=== PATIENT | female | born 2000 | race African-American/Black ===

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

== ENCOUNTER 2022-04-06 15:44 | Emergency (ER) | payer BC ==
[2022-04-06 15:58] VITALS: BP 101/55; PULSE 71; RESP 18; TEMP 98.5; BMI 29.2
[2022-04-06] MEDS ORDERED: diazePAM 5 MG TABLET PO ONE (17:10)
[2022-04-06] MEDS ORDERED: KETOROLAC TROMETHAMINE 30 MG/1 ML VIAL IM ONE (17:10)
[2022-04-06] MEDS ORDERED: KETOROLAC TROMETHAMINE 30 MG/1 ML VIAL ONE (17:13)
[2022-04-06] MEDS ORDERED: diazePAM 5 MG TABLET ONE (17:13)
== END 2022-04-06 18:37 | disposition home or self-care (01) ==
LOC: JERFT 15:44
PROC: 3E023GC Introduction of Other Therapeutic Substance into Muscle, Percutaneous Approach (ICD-10-PCS; principal; 2022-04-06)
DX: S39.012A Strain of muscle, fascia and tendon of lower back, initial encounter (principal); M54.12 Radiculopathy, cervical region; V49.50XA Passenger injured in collision with unspecified motor vehicles in traffic accident, initial encounter
CPT/HCPCS: 72040-TC; 99284-25

== ENCOUNTER 2022-06-12 10:03 | Emergency (ER) | payer BC ==
[2022-06-12 10:18] VITALS: BP 128/82; PULSE 66; RESP 18; TEMP 97.5; BMI 28.3
[2022-06-12] MEDS ORDERED: ONDANSETRON 4 MG/2 ML VIAL IVPUSH ONE (10:30)
[2022-06-12] MEDS ORDERED: SODIUM CHLORIDE 0.9% 500 ML INFUS.BAG IV ONE (10:30)
[2022-06-12] MEDS ORDERED: ONDANSETRON 4 MG/2 ML VIAL ONE (10:46)
[2022-06-12 11:34] LABS: BASO % 0.4 % (0-2.0); EOS % 0.1 % (0-4.5); HEMATOCRIT 41.4 % (32.4-45.2); HEMOGLOBIN 13.9 GM/dL (10.7-15.3); LYMPH % 6.6 % (8-40); MCH 28.2 pg (25.7-33.7); MCHC 33.4 g/dl (32.0-36.0); MEAN CELL VOLUME 84.4 fl (80-96); MEAN PLT VOLUME 7.6 fl (7.5-11.1); MONO % 9.4 % (3.8-10.2); NEUT % 83.5 % (42.8-82.8); PLATELET COUNT 350 10^3/uL (134-434); RBC 4.91 M/mm3 (3.60-5.2); RDW 12.3 % (11.6-15.6); WHITE BLOOD COUNT 12.1 K/mm3 (4.0-10.0)
[2022-06-12 11:37] LABS: EPI CELLS >36 /uL (0-25.1); HYALINE CASTS 2 /uL (0-3.1); URINE APPEARANCE CLEAR; URINE BACTERIA 11 /uL (0-1359); URINE BILIRUBIN NEGATIVE (NEGATIVE); URINE COLOR YELLOW; URINE GLUCOSE (UA) NEGATIVE (NEGATIVE); URINE KETONE NEGATIVE (NEGATIVE); URINE LEUK ESTERASE TRACE (NEGATIVE); URINE NITRITE NEGATIVE (NEGATIVE); URINE PROTEIN NEGATIVE (NEGATIVE); URINE RBC 19 /uL (0-23.9); URINE UROBILINOGEN 0.2 mg/dL (0.2-1.0); URINE WBC 33 /uL (0-25.8)
[2022-06-12 11:52] LABS: HCG,QUALITATIVE URINE Negative
[2022-06-12 12:02] LABS: ALBUMIN 3.5 g/dl (3.4-5.0)
[2022-06-12 12:03] LABS: BLOOD UREA NITROGEN 13.8 mg/dL (7-18)
[2022-06-12 12:05] LABS: CREATININE 0.8 mg/dL (0.55-1.3)
[2022-06-12 12:08] LABS: BILIRUBIN,TOTAL 0.4 mg/dL (0.2-1); TOT PROT 7.1 g/dl (6.4-8.2)
== END 2022-06-12 12:31 | disposition home or self-care (01) ==
LOC: JER 10:03 → JERFT 10:03
PROC: 3E033GC Introduction of Other Therapeutic Substance into Peripheral Vein, Percutaneous Approach (ICD-10-PCS; principal; 2022-06-12)
DX: A09 Infectious gastroenteritis and colitis, unspecified (principal)
CPT/HCPCS: 36415; 80053; 81003; 84703; 85025; 87086; 99284-25

== ENCOUNTER 2022-09-13 22:35 | Emergency (ER) | payer BC ==
[2022-09-13 22:48] VITALS: BP 108/70; PULSE 75; RESP 18; TEMP 98.3; BMI 25.7
[2022-09-13] MEDS ORDERED: ONDANSETRON *ODT* 4 MG TABLET SL ONE (23:33)
[2022-09-13] MEDS ORDERED: SODIUM CHLORIDE 0.9% 500 ML INFUS.BAG IV ONE (23:34)
[2022-09-13] MEDS ORDERED: ONDANSETRON 4 MG/2 ML VIAL IVPUSH ONE (23:36)
[2022-09-13] MEDS ORDERED: ONDANSETRON 4 MG/2 ML VIAL ONE (23:51)
[2022-09-14 00:18] LABS: BASO % 0.4 % (0-2.0); EOS % 0.8 % (0-4.5); HEMATOCRIT 42.1 % (32.4-45.2); HEMOGLOBIN 14.2 GM/dL (10.7-15.3); LYMPH % 19.7 % (8-40); MCH 28.8 pg (25.7-33.7); MCHC 33.8 g/dl (32.0-36.0); MEAN CELL VOLUME 85.1 fl (80-96); MEAN PLT VOLUME 6.8 fl (7.5-11.1); MONO % 8.3 % (3.8-10.2); NEUT % 70.8 % (42.8-82.8); PLATELET COUNT 319 10^3/uL (134-434); RBC 4.94 M/mm3 (3.60-5.2); RDW 13.2 % (11.6-15.6); WHITE BLOOD COUNT 11.1 K/mm3 (4.0-10.0)
[2022-09-14 00:19] LABS: URINE APPEARANCE CLEAR; URINE BILIRUBIN NEGATIVE (NEGATIVE); URINE COLOR YELLOW; URINE GLUCOSE (UA) NEGATIVE (NEGATIVE); URINE KETONE NEGATIVE (NEGATIVE); URINE LEUK ESTERASE NEGATIVE (NEGATIVE); URINE NITRITE NEGATIVE (NEGATIVE); URINE PROTEIN NEGATIVE (NEGATIVE)
[2022-09-14 00:36] LABS: CALCIUM 9.2 mg/dL (8.5-10.1)
[2022-09-14 00:37] LABS: ALBUMIN 3.8 g/dl (3.4-5.0); BLOOD UREA NITROGEN 11.4 mg/dL (7-18)
[2022-09-14 00:40] LABS: CREATININE 0.7 mg/dL (0.55-1.3)
[2022-09-14 00:41] LABS: BILIRUBIN,TOTAL 0.3 mg/dL (0.2-1)
[2022-09-14 00:42] LABS: TOT PROT 7.7 g/dl (6.4-8.2)
[2022-09-14] MEDS ORDERED: FAMOTIDINE 20 MG/50 ML IVPB 20 MG/50 ML MG IVPB ONE ×2 (00:42→00:46)
[2022-09-14] MEDS ORDERED: MAG HYDROX/AL HYDROX/SIMETH 30 ML UNIT-DOSE CUP PO ONE (00:42)
[2022-09-14] MEDS ORDERED: ACETAMINOPHEN 1000 MG/100 ML BAG IVPB ONE (00:42)
[2022-09-14] MEDS ORDERED: MAG HYDROX/AL HYDROX/SIMETH 30 ML UNIT-DOSE CUP ONE (00:45)
[2022-09-14] MEDS ORDERED: ACETAMINOPHEN INJECTION 100 ML IVPB ONE (00:48)
== END 2022-09-14 02:56 | disposition home or self-care (01) ==
LOC: JER 22:35
PROC: 3E0333Z Introduction of Anti-inflammatory into Peripheral Vein, Percutaneous Approach (ICD-10-PCS; principal; 2022-09-13)
PROC: 3E033GC Introduction of Other Therapeutic Substance into Peripheral Vein, Percutaneous Approach (ICD-10-PCS; 2022-09-13)
PROC: 3E033GC Introduction of Other Therapeutic Substance into Peripheral Vein, Percutaneous Approach (ICD-10-PCS; 2022-09-13)
DX: A09 Infectious gastroenteritis and colitis, unspecified (principal); R11.10 Vomiting, unspecified; R10.84 Generalized abdominal pain
CPT/HCPCS: 0241U-QW; 36415; 80053; 81003; 84703; 85025; 99284-25

== ENCOUNTER 2023-09-05 01:37 | Emergency (ER) | payer BC ==
[2023-09-05 01:53] VITALS: BP 110/70; PULSE 66; RESP 20; TEMP 97.3; BMI 24.7
[2023-09-05] MEDS ORDERED: DIPHTH,PERTUSS(ACELL),TET 0.5 ML DISP.SYRIN IM ONE (02:59)
[2023-09-05] MEDS: DIPHTH,PERTUSS(ACELL),TET 0.5 ML DISP.SYRIN IM ONE (03:00)
== END 2023-09-05 03:40 | disposition home or self-care (01) ==
LOC: JER 01:37
PROC: 0HQFXZZ Repair Right Hand Skin, External Approach (ICD-10-PCS; principal; 2023-09-05)
PROC: 3E0234Z Introduction of Serum, Toxoid and Vaccine into Muscle, Percutaneous Approach (ICD-10-PCS; 2023-09-05)
DX: S61.212A Laceration without foreign body of right middle finger without damage to nail, initial encounter (principal); W26.8XXA Contact with other sharp object(s), not elsewhere classified, initial encounter
CPT/HCPCS: 90715; 99282-25

== ENCOUNTER 2024-02-10 04:44 | Inpatient (IN) | payer BC ==
[2024-02-10 04:47] VITALS: RESP 18; BMI 29.2
[2024-02-10] MEDS ORDERED: ONDANSETRON 4 MG/2 ML VIAL ONE ×2 (05:48→17:39)
[2024-02-10 06:20] LABS: HEMATOCRIT 41.5 % (32.4-45.2); HEMOGLOBIN 14.3 GM/dL (10.7-15.3); MCH 29.2 pg (25.7-33.7); MCHC 34.4 g/dl (32.0-36.0); MEAN CELL VOLUME 85.1 fl (80-96); MEAN PLT VOLUME 7.2 fl (7.5-11.1); PLATELET COUNT 282 10^3/uL (134-434); RBC 4.88 M/mm3 (3.60-5.2); RDW 12.8 % (11.6-15.6); WHITE BLOOD COUNT 26.9 K/mm3 (4.0-10.0)
[2024-02-10] MEDS: SODIUM CHLORIDE 0.9% 500 ML INFUS.BAG IV ONE (06:23)
[2024-02-10] MEDS: ACETAMINOPHEN 1000 MG/100 ML BAG IVPB ONE ×2 (06:23→09:55)
[2024-02-10] MEDS: ONDANSETRON 4 MG/2 ML VIAL IVPUSH ONE ×3 (06:23→18:06)
[2024-02-10 06:48] LABS: POTASSIUM 3.7 mmol/L (3.5-5.1)
[2024-02-10 06:50] LABS: ALBUMIN 3.8 g/dl (3.4-5.0); BLOOD UREA NITROGEN 11.5 mg/dL (7-18); CALCIUM 8.9 mg/dL (8.5-10.1); MAGNESIUM 1.5 mg/dL (1.8-2.4)
[2024-02-10 06:53] LABS: CREATININE 0.7 mg/dL (0.55-1.3)
[2024-02-10 06:55] LABS: BILIRUBIN,TOTAL 0.6 mg/dL (0.2-1); TOT PROT 7.3 g/dl (6.4-8.2)
[2024-02-10] MEDS ORDERED: MAGNESIUM 1GM/D5W - 1 GM/100 ML IVPB IVPB ONE (07:39)
[2024-02-10] MEDS: MAGNESIUM 1GM/D5W 100ML - 100 ML IVPB IVPB ONE (07:59)
[2024-02-10 09:35] LABS: ANISOCYTOSIS 0; MACROCYTOSIS 0
[2024-02-10 09:37] LABS: PLATELET ESTIMATE ADEQUATE
[2024-02-10] MEDS ORDERED: KETOROLAC TROMETHAMINE 15 MG/ML VIAL ONE (10:02)
[2024-02-10 10:06] VITALS: BP 113/64; PULSE 68; TEMP 98.2
[2024-02-10] MEDS: KETOROLAC TROMETHAMINE 15 MG/ML VIAL IVPUSH ONE (10:09)
[2024-02-10 11:26] LABS: URINE APPEARANCE CLEAR; URINE BILIRUBIN NEGATIVE (NEGATIVE); URINE COLOR YELLOW; URINE GLUCOSE (UA) NEGATIVE (NEGATIVE); URINE KETONE NEGATIVE (NEGATIVE); URINE LEUK ESTERASE NEGATIVE (NEGATIVE); URINE NITRITE NEGATIVE (NEGATIVE); URINE PROTEIN NEGATIVE (NEGATIVE)
[2024-02-10] MEDS ORDERED: morphine SULFATE 4 MG/ML VIAL ONE (19:47)
[2024-02-10] MEDS: morphine CARPU-JECT 4 MG/1 ML DISP.SYRIN IVPUSH ONE (20:07)
[2024-02-10] MEDS: PIPERACILLIN/TAZOB 3.375 GM 3.375 GM in DEXTROSE 5%-WATER - 50 ML IVPB ONE (20:45)
[2024-02-10] MEDS: morphine SULFATE 4 MG/ML VIAL IVPUSH ONE (20:45)
== END 2024-02-10 20:54 | disposition left against medical advice (07) | DRG 446 ==
LOC: JER 04:44 → JERBED 18:10
PROVIDERS: ADMIT Internal Medicine; ATTEND Internal Medicine
DX: K80.20 Calculus of gallbladder without cholecystitis without obstruction (principal); R11.2 Nausea with vomiting, unspecified
CPT/HCPCS: 0241U-QW; 36415; 71045-TC-FY; 74177-TC; 76705-TC; 80053; 81003; 83690; 83735; 84484; 84703; 85025; 87086; 93005; 93010; 99285-25; J0131; Q9967

== ENCOUNTER 2024-02-11 01:37 | Inpatient (IN) | payer BC ==
[2024-02-11] MEDS: ceFAZolin SODIUM 1 GM VIAL IVPB ONE
[2024-02-11 02:24] VITALS: BMI 29.2
[2024-02-11] MEDS ORDERED: METOCLOPRAMIDE HCL INJECTION 10 MG/2 ML VIAL ONE (02:46)
[2024-02-11] MEDS ORDERED: FAMOTIDINE 20 MG/50 ML IVPB 20 MG/50 ML MG IVPB ONE (02:46)
[2024-02-11] MEDS ORDERED: ONDANSETRON 4 MG/2 ML VIAL IVPUSH PRN ×3 (02:56→16:15)
[2024-02-11] MEDS: METOCLOPRAMIDE HCL INJECTION 10 MG/2 ML VIAL IVPB ONE (03:22)
[2024-02-11] MEDS: FAMOTIDINE 20 MG/50 ML IVPB 20 MG/50 ML MG IVPB ONE (03:22)
[2024-02-11] MEDS: LACTATED RINGERS SOLUTION 1000 ML INFUS.BAG IV ONE (03:22)
[2024-02-11] MEDS: LACTATED RINGERS SOLUTION 1,000 ML/1,000 ML INFUS.BAG IV SCH ×2 (04:04→16:49)
[2024-02-11] MEDS: ONDANSETRON 4 MG/2 ML VIAL IVPUSH ONE (04:04)
[2024-02-11] MEDS: ACETAMINOPHEN 1000 MG/100 ML BAG IVPB PRN (04:04)
[2024-02-11 07:06] LABS: HEMATOCRIT 37.9 % (32.4-45.2); MCHC 34.3 g/dl (32.0-36.0); MEAN CELL VOLUME 84.6 fl (80-96); MEAN PLT VOLUME 6.9 fl (7.5-11.1); PLATELET COUNT 241 10^3/uL (134-434); RBC 4.48 M/mm3 (3.60-5.2); WHITE BLOOD COUNT 25.7 K/mm3 (4.0-10.0)
[2024-02-11 07:07] LABS: INR 1.32 (0.83-1.09); PROTHROMBIN TIME (PATIENT) 14.8 SEC (9.7-13.0)
[2024-02-11 07:11] LABS: POTASSIUM 3.5 mmol/L (3.5-5.1)
[2024-02-11 07:15] LABS: BLOOD UREA NITROGEN 7.9 mg/dL (7-18); CALCIUM 8.6 mg/dL (8.5-10.1)
[2024-02-11 07:19] LABS: CREATININE 0.7 mg/dL (0.55-1.3)
[2024-02-11] MEDS ORDERED: AMPICILLIN NA/SULBACTAM NA 3 GM/100 ML BAG IVPB ONE (09:40)
[2024-02-11] MEDS: AMPICILLIN NA/SULBACTAM NA 1.5 GM in SODIUM CHLORIDE 100 ML IVPB SCH (09:59)
[2024-02-11] MEDS ORDERED: INDOCYANINE GREEN 25 MG/10 ML VIAL IVPUSH ONE (12:51)
[2024-02-11] MEDS ORDERED: BUPIVACAINE HCL/PF 0.25% (2.5MG/ML) 10 ML VIAL ONE (12:51)
[2024-02-11] MEDS ORDERED: oxyCODONE HCL 5 MG TABLET PO PRN ×2 (13:05→16:15)
[2024-02-11] MEDS ORDERED: PROPOFOL 40 ML ONE (13:12)
[2024-02-11] MEDS ORDERED: DEXAMETHASONE SOD PHOSPHATE 4 MG/1 ML VIAL ONE (13:12)
[2024-02-11] MEDS ORDERED: MIDAZOLAM HCL 2 MG/2 ML SINGLE DOSE VIAL ONE (13:12)
[2024-02-11] MEDS ORDERED: LIDOCAINE HCL/PF 2% SDV 5ML VIAL ONE (13:12)
[2024-02-11] MEDS ORDERED: ALBUTEROL SO4 HFA INHALER IH ONE (13:13)
[2024-02-11] MEDS ORDERED: ROCURONIUM BROMIDE 50 MG/5 ML VIAL ONE (13:16)
[2024-02-11] MEDS ORDERED: cefOXitin SODIUM 2 GM VIAL (RESTRICTED TO ID) IVPB ONE (14:37)
[2024-02-11] MEDS: cefOXitin SODIUM 2 GM VIAL (RESTRICTED TO ID) IVPB ONE (14:40)
[2024-02-11] MEDS: BUPIVACAINE HCL/PF 0.25% (2.5MG/ML) 10 ML VIAL IJ ONE ×2 (14:48)
[2024-02-11] MEDS ORDERED: NEOSTIGMINE METHYLSULFATE 0.5 MG/1 ML - 10 ML MDV ONE (15:13)
[2024-02-11] MEDS ORDERED: GLYCOPYRROLATE 0.2 MG/1 ML VIAL ONE (15:14)
[2024-02-11] MEDS ORDERED: KETOROLAC TROMETHAMINE 30 MG/1 ML VIAL ONE (15:30)
[2024-02-11] MEDS ORDERED: ONDANSETRON 4 MG/2 ML VIAL ONE (16:00)
[2024-02-11] MEDS: ONDANSETRON 4 MG/2 ML VIAL IVPUSH PRN (16:04)
[2024-02-11] MEDS ORDERED: ACETAMINOPHEN INJECTION 100 ML IVPB ONE (16:25)
[2024-02-11] MEDS: ACETAMINOPHEN 1000 MG/100 ML BAG IVPB SCH (16:30)
[2024-02-11] MEDS ORDERED: ACETAMINOPHEN 1000 MG/100 ML BAG IVPB SCH (22:00)
[2024-02-11] MEDS: oxyCODONE HCL 5 MG TABLET PO PRN (23:18)
[2024-02-12 07:43] LABS: POTASSIUM 3.8 mmol/L (3.5-5.1)
[2024-02-12 07:49] LABS: CALCIUM 8.6 mg/dL (8.5-10.1); HEMATOCRIT 39.1 % (32.4-45.2); HEMOGLOBIN 13.3 GM/dL (10.7-15.3); MCH 28.9 pg (25.7-33.7); MEAN CELL VOLUME 84.9 fl (80-96); MEAN PLT VOLUME 7.8 fl (7.5-11.1); PLATELET COUNT 203 10^3/uL (134-434); RBC 4.61 M/mm3 (3.60-5.2); RDW 13.5 % (11.6-15.6); WHITE BLOOD COUNT 22.4 K/mm3 (4.0-10.0)
[2024-02-12 07:50] LABS: BLOOD UREA NITROGEN 11.1 mg/dL (7-18); MAGNESIUM 2.2 mg/dL (1.8-2.4)
[2024-02-12 07:53] LABS: CREATININE 0.6 mg/dL (0.55-1.3)
[2024-02-12 07:54] LABS: TOT PROT 6.4 g/dl (6.4-8.2)
[2024-02-12 07:55] LABS: BILIRUBIN,TOTAL 0.8 mg/dL (0.2-1)
[2024-02-12 07:58] LABS: ALBUMIN 2.8 g/dl (3.4-5.0)
[2024-02-12] MEDS ORDERED: INSULIN ASPART SLIDING SCALE (NOVOLOG) 1 VIAL SQ ONE (08:44)
[2024-02-12 10:37] LABS: ANISOCYTOSIS 0; HELMET CELLS 0; HOWELL-JOLLY BODIES 0; MACROCYTOSIS 0; OVALOCYTE 0; ROULEAU 0; SICKELED CELLS 0; TARGET CELLS 0; TEAR DROP CELLS 0; TOXIC GRANULATION 0
[2024-02-12] MEDS: SODIUM CHLORIDE NASAL SPRAY 44 ML BOTTLE NS PRN (10:44)
[2024-02-12] MEDS: CEFTRIAXONE 1 GM in DEXTROSE 5%-WATER - 50 ML IVPB SCH (11:31)
[2024-02-12] MEDS: AZITHROMYCIN IVPB 500 MG/250 ML BAG IVPB SCH (12:22)
[2024-02-12] MEDS: oxyCODONE HCL 5 MG TABLET PO PRN (13:32)
[2024-02-12] MEDS: ACETAMINOPHEN 500 MG TABLET (FP) PO SCH (17:27)
[2024-02-12] MEDS: ACETAMINOPHEN 325 MG TABLET (FP) PO SCH (18:25)
[2024-02-13] MEDS: oxyCODONE HCL 5 MG TABLET PO ONE ×2 (03:54→11:01)
[2024-02-13 09:08] LABS: BASO % 0.4 % (0-2.0); EOS % 0.3 % (0-4.5); HEMATOCRIT 35.2 % (32.4-45.2); HEMOGLOBIN 12.1 GM/dL (10.7-15.3); LYMPH % 17.5 % (8-40); MCHC 34.4 g/dl (32.0-36.0); MEAN CELL VOLUME 84.2 fl (80-96); MEAN PLT VOLUME 7.3 fl (7.5-11.1); MONO % 9.3 % (3.8-10.2); NEUT % 72.5 % (42.8-82.8); PLATELET COUNT 269 10^3/uL (134-434); RBC 4.18 M/mm3 (3.60-5.2); WHITE BLOOD COUNT 14.4 K/mm3 (4.0-10.0)
[2024-02-13 09:29] LABS: POTASSIUM 3.6 mmol/L (3.5-5.1)
[2024-02-13 09:32] LABS: CALCIUM 8.6 mg/dL (8.5-10.1)
[2024-02-13 09:33] LABS: ALBUMIN 2.9 g/dl (3.4-5.0); BLOOD UREA NITROGEN 11.7 mg/dL (7-18); MAGNESIUM 2.1 mg/dL (1.8-2.4)
[2024-02-13 09:36] LABS: CREATININE 0.7 mg/dL (0.55-1.3)
[2024-02-13 09:37] LABS: BILIRUBIN,TOTAL 0.8 mg/dL (0.2-1)
[2024-02-13 09:38] LABS: TOT PROT 6.2 g/dl (6.4-8.2)
[2024-02-13] MEDS ORDERED: AZITHROMYCIN IVPB 250 MG in DEXTROSE 5%-WATER - 250 ML IVPB SCH (10:00)
[2024-02-13] MEDS: POLYETHYLENE GLYCOL (HEALTHYLAX) 3350 17 GM PACKET PO ONE (11:50)
[2024-02-13] MEDS: AMOX TR/POT CLAV 875MG/125MG TABLETS (FP) PO ONE (12:20)
[2024-02-13 14:21] VITALS: BP 127/98; PULSE 59; RESP 19; TEMP 98.1
[2024-02-13] MEDS: ONDANSETRON *ODT* 4 MG TABLET SL ONE (16:01)
[2024-02-13] MEDS: BISACODYL 10 MG SUPP.RECT PR ONE (17:40)
[2024-02-13] MEDS: AMOX TR/POT CLAV 875MG/125MG TABLETS (FP) PO SCH (18:00)
== END 2024-02-13 18:47 | disposition home or self-care (01) | DRG 419 ==
LOC: JER 01:37 → JERBED 02:42 → OBSVTOIN 02:42 → UNDOADMOB 02:42 → INTOOBSV 02:42 → JERBED 02:49 → OBSVTOIN 02:49 → J8W 19:32
PROVIDERS: ADMIT Internal Medicine; ATTEND Nurse Practitioner Acute Care
PROC: 0FT44ZZ Resection of Gallbladder, Percutaneous Endoscopic Approach (ICD-10-PCS; principal; 2024-02-11 12:00)
DX: K80.20 Calculus of gallbladder without cholecystitis without obstruction (principal); F12.90 Cannabis use, unspecified, uncomplicated; D72.829 Elevated white blood cell count, unspecified; R91.8 Other nonspecific abnormal finding of lung field
CPT/HCPCS: 36415; 71046-TC-FY; 80048; 80053; 82308; 83735; 84703; 85025; 85027; 85610; 86140; 88304-TC; 94010; 94760; 99285-25; J0131; Q0162

== ENCOUNTER 2024-11-14 17:26 | Emergency (ER) | payer BC ==
[2024-11-14 17:59] VITALS: BP 114/71; PULSE 71; RESP 18; TEMP 98.2; BMI 30.9
[2024-11-14] MEDS ORDERED: IBUPROFEN 600 MG TABLET (FP) PO ONE (18:57)
[2024-11-14] MEDS: IBUPROFEN 600 MG TABLET (FP) PO ONE (19:02)
== END 2024-11-14 20:52 | disposition home or self-care (01) ==
LOC: JERFT 17:26
DX: S30.0XXA Contusion of lower back and pelvis, initial encounter (principal); Y04.0XXA Assault by unarmed brawl or fight, initial encounter; Y92.59 Other trade areas as the place of occurrence of the external cause
CPT/HCPCS: 72100-TC-FY; 84703; 99284-25